=== PATIENT | male | born 1995 ===

== ENCOUNTER 2017-01-21 11:57 | Emergency (ER) | payer BC ==
[2017-01-21 12:03] VITALS: BP 127/80
[2017-01-21] MEDS ORDERED: Ibuprofen TAB* 600 MG PO ONE (12:33)
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
== END 2017-01-21 14:58 | disposition home or self-care (01) ==
LOC: ED 11:57
DX: S02.2XXA Fracture of nasal bones, initial encounter for closed fracture (principal); S02.401A Maxillary fracture, unspecified side, initial encounter for closed fracture; K08.89 Other specified disorders of teeth and supporting structures; F17.210 Nicotine dependence, cigarettes, uncomplicated; Y09 Assault by unspecified means; Y93.9 Activity, unspecified; Y92.9 Unspecified place or not applicable
CPT/HCPCS: 70450; 70486; 99282; A9270-GY